=== PATIENT | female | born 1975 | race Caucasian/White ===

== ENCOUNTER 2024-08-09 09:01 | Outpatient (CLI) | payer OTHER, SELFPAY ==
--- OUTSIDE RECORDS SUMMARY | 2024-08-09 09:07 | XMS_ITS | Clinical Summary ---
Author Organization [facility] [address] [place] [address] Care Team Providers Care Guide Plant Name Role Phone Jarrett Sandoval MD Primary Care Provider [phone] Juan Thomas MD Unavailable [phone] Allergies Active Allergy Reactions Criticality Noted Date Comments Diphenhydramine Other (See comments) Low 03/03/2024 Nose bleeds Naproxen Vomiting Low 03/03/2024 Medications norgestimate-eth inyl estradioL (ORTHO-CYCLEN) 0.25-35 mg-mcg per tablet Take 1 tablet by mouth daily Active Active Problems Problem Noted Date Diagnosed Date Lipoma of torso 03/03/2024 Encounter for medical examination to establish c are 03/03/2024 Assessment & Plan (03/03/2024 3:55 PM ROUSTABOUT SUPERVISOR): A(n) initial well visit to establish care has been performed today. Cecilia Sharp is not up to date on screening tests. She is in need of Colon cancer screening, Cholesterol screening, Hepatitis B, and Hepatitis C screening. She is not up to date on needed preventative vaccinations; She is in need of Tdap/Td. We discussed healthy lifestyle habits, educational material has been given. Medications reviewed, changes documented as per the medical record and discussed with patient along with risks vs benefits. Specific topics reviewed: drugs, ETOH, and tobacco, importance of regular dental care, importance of regular exercise, importance of varied diet, limit TV, media violence, minimize junk food, and seat belts. Return in 1 year Medical History Medical History Date Comments Lipoma of torso 03/03/2024 Family History Medical History Relation Name Comments No Known Problems Brother Lung cancer Father Gus heavy smoker (> 2 ppd) Prostate cancer Maternal Grandfather Breast cancer Maternal Grandmother Heart disease Maternal Grandmother COPD Mother Lola Diabetes Mother Lola Obesity Mother Lola morbid Macular degeneration Paternal Grandfather Prostate cancer Paternal Grandfather No Known Problems Paternal Grandmother Relation Name Status Comments Brother Alive Father Gus Maternal Grandfather Maternal Grandmother Mother Lola Alive Paternal Grandfather Paternal Grandmother Social History Tobacco Use Types Packs/Day Years Used Date Smoking Tobacco: Never Smokeless Tobacco: Never AUDIT-C Answer Date Recorded Q1: How often do you have a drink containing alc ohol? 2-4 times a month 03/03/2024 Q2: How many drinks containi ng alcohol do you have on a typical day when you are drinking? 1 or 2 03/03/2024 Q3: How often do you have si x or more drinks on one occasion? 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3 03/03/2024 3:39 PM ROUSTABOUT SUPERVISOR Plan of Treatment Health Maintenance Due Date Last Done Comments Cervical Cancer Screening 1975 DTaP/Tdap/Td Vaccine (1 - Tdap) 1986 Hepatitis B Screening 1993 Covid-19 Vaccine (4 - 2023-2 5 season) 2023 03/03/2021, 07/03/2020, 06/05/2020 Influenza Vaccine (#1) 2024 Postp oned from 12/16/2023 (Patient declined, but will receive in the future) Breast Cancer Screening-Mammogram 12/08/2024 Postponed from 01/14 (Patient declined, but will receive in the future) Depression Screening 03/03/2025 03/03/2024 Regular Well Visit/Exam 18-64 03/03/2025 03/03/2024 Colon Cancer Screening-DNA Stool 03/22/2027 03/22/2024 Hepatitis C Screening Completed 03/03/2024 Pneumococcal vaccine <65 Aged Out No longer eligible based on patient's age to complete this topic Procedures Procedure Name Priority Date/Time Associated Diagnosis Comments STOOL DNA COLOGUARD Routine 03/22/2024 8:00 AM ROUSTABOUT SUPERVISOR Screen for colon cancer HEPATITIS C ANTIBODY Routine 03/03/2024 4:11 PM ROUSTABOUT SUPERVISOR Encounter for hepatitis C screening test for low risk patient from Last 3 Months or Most Recently Relevant to Health Maintenance Results * Stool DNA - Cologuard (03/22/2024 8:00 AM ROUSTABOUT SUPERVISOR) Stool DNA - Cologuard Negative Negative Do It In Person (CLIA #:[id number]) Comment: NEGATIVE TEST RESULT. A negative Cologuard result indicates a low likelihood that a colorectal cancer (CRC) or advanced adenoma (adenomatous polyps with more advanced pre-malignant features) is present. The chance that a person with a negative Cologuard test has a colorectal cancer is less than 1 in 1500 (negative predictive value >99.9%) or has an advanced adenoma is less than 5.3% (negative predictive value 94.7%). These data are based on a prospective cross-sectional study of 10,000 individuals at average risk for colorectal cancer who were screened with both Cologuard and colonoscopy. (Ghazal Corbett al, N Engl J Med 2014;370(14):6608-2873) The normal value (reference range) for this assay is negative. COLOGUARD RE-SCREENING RECOMMENDATION: Periodic colorectal cancer screening is an important part of preventive healthcare for asymptomatic individuals at average risk for colorectal cancer. Following a negative Cologuard result, the [place] Cancer Society and U.S. Multi-Society Task Force screening guidelines recommend a Cologuard re-screening interval of 3 years. References: [place] Cancer Society Guideline for Colorectal Cancer Screening: https://www.cancer.org/cancer/tfnvq-ecfiei-ssnzsr/bnduatddh-jpmmokqkw-oojoaui/ac s-rec ommendations.html.; Bernard DK, Дмитрий GUTIERRES, Aquiles TenorioK, Colorectal Cancer Screening: Recommendations for Physicians and Patients from the U.S. Multi-Society Task Force on Colorectal Cancer Screening , Am J Gastroenterology 2017; 112:6804-1992. TEST DESCRIPTION: Composite algorithmic analysis of stool DNA-biomarkers with hemoglobin immunoassay. Quantitative values of individual biomarkers are not reportable and are not associated with individual biomarker result reference ranges. Cologuard is intended for colorectal cancer screening of adults of either sex, 45 years or older, who are at average-risk for colorectal cancer (CRC). Cologuard has been approved for use by the U.S. FDA. The performance of Cologuard was established in a cross sectional study of average-risk adults aged 50-84. Cologuard performance in patients ages 45 to 49 years was estimated by sub-group analysis of near-age groups. Colonoscopies performed for a positive result may find as the most clinically significant lesion: colorectal cancer [4.0%], advanced adenoma (including sessile serrated polyps greater than or equal to 1cm diameter) [20%] or non- advanced adenoma [31%]; or no colorectal neoplasia [45%]. These estimates are derived from a prospective cross-sectional screening study of 10,000 individuals at average risk for colorectal cancer who were screened with both Cologuard and colonoscopy. (Ghazal Flores, N Engl J Med 2014;370(14):4703-3313.) Cologuard may produce a false negative or false positive result (no colorectal cancer or precancerous polyp present at colonoscopy follow up). A negative Cologuard test result does not guarantee the absence of CRC or advanced adenoma (pre-cancer). The current Cologuard screening interval is every 3 years. ([place] Cancer Society and U.S. Multi-Society Task Force). Cologuard performance data in a 10,000 patient pivotal study using colonoscopy as the reference method can be accessed at the following location: www.Quibb/results. Additional description of the Cologuard test process, warnings and precautions can be found at www.appssavvyrd.com. Stool 03/22/2024 8:00 AM ROUSTABOUT SUPERVISOR 03/23/2024 7:20 PM ROUSTABOUT SUPERVISOR Result [facility] Jarrett Sandoval MD LAB BODY FLUIDS AND STOOLS ORDERABLES Final Result Performing Organization Address [facility] Co de Phone Number [employer] (CLIA #:[id number]) [address] [place] [address] * Hepatitis C antibody Blood (03/03/2024 4:11 PM ROUSTABOUT SUPERVISOR) Hep C Ab Nonreactive Nonreactive Comment: Interpretive Data Nonreactive: Antibodies to HCV not detected. Does NOT exclude the possibility of recent exposure to HCV. Equivocal: Equivocal for HCV antibodies. Supplemental molecular testing will be automatically performed to determine infection status in accordance with current CDC screening recommendations. Reactive: Positive for HCV antibodies. This may represent current or past HCV infection. Supplemental molecular testing will be automatically performed to determine current infection status in accordance with current CDC screening recommendations. Interpretive data was last revised on 2019. Blood 03/03/2024 4:11 PM ROUSTABOUT SUPERVISOR 03/03/2024 8:36 PM ROUSTABOUT SUPERVISOR Jarrett Sandoval MD LAB MICROBIOLOGY - GENERAL ORDERABLES Final Result Performing Organization Address [facility] Co de Phone Number MELCHOR [phone] [place] [address] from Last 3 Months or Most Recently Relevant to Health Maintenance Insurance [facility] H[facility]/PP[place] Address: [place] [address] Care Teams Guide Plant Relationship Specialty Start Date End Date Jarrett Sandoval MD [address] [facility] [address] [place] [address] PCP - General Family Medicine 03/03/24 Juan Thomas MD [address] [place] [address] Referring Physician Obstetrics and Gynecology 03/03/24
--- OUTSIDE RECORDS SUMMARY | 2024-08-09 09:07 | XMS_ITS | Referral Summary ---
Author Organization [facility] [address] Address [address] [place] [address] Care Team Providers Care Woodwinds Teacher Name Role Phone Jarrett Sandoval MD Primary Care Provider [phone] Juan Thomas MD Unavailable [phone] Allergies Active Allergy Reactions Criticality Noted Date Comments Diphenhydramine Other (See comments) Low 03/03/2024 Nose bleeds Naproxen Vomiting Low 03/03/2024 Medications norgestimate-eth inyl estradioL (ORTHO-CYCLEN) 0.25-35 mg-mcg per tablet Take 1 tablet by mouth daily Active Active Problems Problem Noted Date Diagnosed Date Lipoma of torso 03/03/2024 Encounter for medical examination to establish c are 03/03/2024 Assessment & Plan (03/03/2024 3:55 PM BAILING MACHINE OPERATOR): A(n) initial well visit to establish care [...] and seat belts. 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 Not on file Not on file Not on file Last Filed Vital Signs Vital Sign Reading Time Taken Comments Blood Pressure 126/74 03/03/2024 3:39 PM BAILING MACHINE OPERATOR Pulse 78 03/03/2024 3:39 PM BAILING MACHINE OPERATOR Temperature 36.6 C (97.8 F) 03/03/2024 3:39 PM BAILING MACHINE OPERATOR Respiratory Rate 18 03/03/2024 3:39 PM BAILING MACHINE OPERATOR Oxygen Saturation 98% 03/03/2024 3:39 PM BAILING MACHINE OPERATOR Inhaled Oxygen Concentration - - Weight 79.8 kg (176 lb) 03/03/2024 3:39 PM BAILING MACHINE OPERATOR Height 171 cm (5' 7.32 ) 03/03/2024 3:39 PM BAILING MACHINE OPERATOR Body Mass Index 27.3 03/03/2024 3:39 PM BAILING MACHINE OPERATOR Plan of Treatment Not on file Procedures Procedure Name Priority Date/Time Associated Diagnosis Comments STOOL DNA COLOGUARD Routine 03/22/2024 8:00 AM BAILING MACHINE OPERATOR Screen for colon cancer HEPATITIS C ANTIBODY Routine 03/03/2024 4:11 PM BAILING MACHINE OPERATOR Encounter for hepatitis C screening test for low risk patient from Last 3 Months or Most Recently Relevant to Health Maintenance Results * Stool DNA - Cologuard (03/22/2024 8:00 AM BAILING MACHINE OPERATOR) Pathologist [facility] Stool DNA - Cologuard Negative Negative [facility] (CLIA #:[id number]) Comment: NEGATIVE TEST RESULT. A negative Cologuard [...] screened with both Cologuard and colonoscopy. (Ghazal Purdy et al, N Engl J Med 2014;370(14):1462-6542) The normal value (reference range) for this assay is negative. COLOGUARD RE-SCREENING RECOMMENDATION: Periodic colorectal cancer screening is an important part of preventive healthcare for asymptomatic individuals at average risk for colorectal cancer. Following a negative Cologuard result, the [place] Cancer Society and U.S. Multi-Society Task Force screening guidelines recommend a Cologuard re-screening interval of 3 years. References: [place] Cancer Society Guideline for Colorectal Cancer Screening: https://www.cancer.org/cancer/gkjdm-huiycc-emzvst/ayiehkxxc-wklhgfwew-lboydsc/ac s-rec ommendations.html.; Bernard DK, Дмитрий CR, Aquiles TenorioK, Colorectal Cancer Screening: Recommendations for Physicians and Patients from the U.S. Multi-Society Task Force on Colorectal Cancer Screening , Am J Gastroenterology 2017; 112:2749-7674. TEST DESCRIPTION: Composite algorithmic analysis of stool [...] (Ghazal Corbett al, N Engl J Med 2014;370(14):7849-5557.) Cologuard may produce a false negative or false positive result (no colorectal cancer or precancerous polyp present at colonoscopy follow up). A negative Cologuard test result does not guarantee the absence of CRC or advanced adenoma (pre-cancer). The current Cologuard screening interval is every 3 years. ([place] Cancer Society and U.S. Multi-Society Task Force). Cologuard performance data in a 10,000 patient pivotal study using colonoscopy as the reference method can be accessed at the following location: www.Zebtab/results. Additional description of the Cologuard test process, warnings and precautions can be found at www.Indigiord.com. Stool 03/22/2024 8:00 AM BAILING MACHINE OPERATOR 03/23/2024 7:20 PM BAILING MACHINE OPERATOR Jarrett Sandoval MD LAB BODY FLUIDS AND STOOLS ORDERABLES Final Result [facility] (CLIA #:[id number]) [address] [address] * Hepatitis C antibody Blood (03/03/2024 4:11 PM BAILING MACHINE OPERATOR) Hep C Ab Nonreactive Nonreactive Comment: Interpretive [...] revised on 2019. Blood 03/03/2024 4:11 PM BAILING MACHINE OPERATOR 03/03/2024 8:36 PM BAILING MACHINE OPERATOR Jarrett Sandoval MD LAB MICROBIOLOGY - GENERAL ORDERABLES Final Result Performing Organization Address City/State/ZIP [facility] Phone Number M[facility] [phone] Department [place] [address] from Last 3 Months or Most Recently Relevant to Health Maintenance Insurance [facility] CHOICE PLUS [facility] H[facility]/PPO Address: [facility] [id number] [place] [id number] Care Teams Woodwinds Teacher Relationship Specialty Start Date End Date Jarrett Sandoval MD [address] [place] [address] PCP - General Family Medicine 03/03/24 Juan Thomas MD [address] [place] [address] Referring Physician Obstetrics and Gynecology 03/03/24
--- OUTSIDE RECORDS SUMMARY | 2024-08-09 09:07 | XMS_ITS | Clinical Summary ---
Author Organization [facility] Address [address] [place] [address] Care Team Providers Care Zigzag Elastic Attacher Name Role Phone Unavailable Primary Care Provider Unavailabl e Social History Tobacco Use Types Packs/Day Years Used Date Smoking Tobacco: Never Assessed Comments Unknown Sex and Gender Information Value Date Recorded Sex Assigned at Not on file Legal Sex Female 3:46 PM CDT Gender Identity Not on file Sexual Orientation Not on file Plan of Treatment Health Maintenance Due Date Last Done Comments Hepatitis C Virus (HCV) Screening 1975 TdaP Immunization 1975 Hepatitis B Immunization (1 of 3 - 19+ 3-dose series) 1994 Pap Smear 01/15/1996 Cervical Cancer Screening (CCS) 2005 HPV/Cotest 2005 Discussion re Starting/Frequ ency of Mammograms 2015 Colonoscopy 01/15/2020 Colorectal Cancer Screening 01/15/2020 Influenza Immunization (#1) 2023 SARS-COV-2 Immunization ( season) 2023 Respiratory Syncytial Virus (RSV) Immunization (Adult) (1 - 1-dose 75+ series) 2050 Meningococcal Immunization (ACWY) Aged Out No longer eligible based on patient's age to complete this topic Pneumococcal Immunization Combined Aged Out No longer eligible based on patient's age to complete this topic Rotavirus Immunization Aged Out No lo nger eligible based on patient's age to complete this topic
--- OUTSIDE RECORDS SUMMARY | 2024-08-09 09:07 | XMS_ITS | Clinical Summary ---
Author Organization [facility] Address [address] [place] [address] Care Team Providers Care Service Coordinator Name Role Phone AshleeDoris trotter Tejinder ASSOCIATE TRAINER Primary Care Provider Allergies Active Allergy Reactions Criticality Noted Date Comments Naproxen Nausea Only,Diarrhea Medium 12/05/2018 Medications TRI-SPRINTEC 0.18/0.215/0.25 MG-35 MCG tablet Take 1 tablet by mouth daily. 2 11/13/2018 Active Active Problems No known active problems Family History Medical History Relation Comments Cancer Father COPD Mother Diabetes Mother Relation Status Comments Father Mother Alive Social History Tobacco Use Types Packs/Day Years Used Date Smoking Tobacco: Never Smokeless Tobacco: Never Alcohol Use Standard Drinks/Week Comments Yes 0 (1 standard drink = 0.6 oz pur e alcohol) Comments No Sex and Gender Information Value Date Recorded Sex Assigned at Not on file Legal Sex Female 9:34 AM CDT Gender Identity Not on file Sexual Orientation Not on file Last Filed Vital Signs Vital Sign Reading Time Taken Comments Blood Pressure 110/70 12/05/2018 8:45 AM CDT Pulse 86 12/05/2018 8:45 AM CDT Temperature 36.7 C (98.1 F) 12/05/2018 8:45 AM CDT Respiratory Rate 18 12/05/2018 8:45 AM CDT Oxygen Saturation 98% 12/05/2018 8:45 AM CDT Inhaled Oxygen Concentration - - Weight 79.4 kg (175 lb 1 oz) 12/05/2018 8:45 AM CDT Height - - Body Mass Index - - Plan of Treatment Health Maintenance Due Date Last Done Comments Cervical Cancer Screening Pa p Smear (Age 30 to 64) Every 3 Years 1975 Colorectal Cancer Screening Colonoscopy (10 Years) 1975 Hepatitis C 1993 DTaP, Tdap and Td Vaccines ( 1 - Tdap) 1994 Hepatitis B Vaccines (1 of 3 - 19+ 3-dose series) 1994 Cervical Cancer Screening Pa p with HPV Testing (Age 30 to 64) Every 5 Years 2005 Cervical Cancer Screening wi th HPV 2005 Mammogram Screening 2015 Annual Physical 12/06/2019 12/05/2018 COVID-19 Vaccine (4 - 2023-2 5 season) 2023 03/03/2021, 07/03/2020, 06/05/2020 Meningococcal B Vaccine Aged Out No l onger eligible based on patient's age to complete this topic Meningococcal Vaccine Aged Out No kareem corrine eligible based on patient's age to complete this topic Pneumococcal Vaccine: Pediatrics (0 to 5 Years) and At-Risk Patients (6 to 49 Years) Aged Out No longer eligible b ased on patient's age to complete this topic RSV Immunizations Under 20 Months Aged Out No longer eligible b ased on patient's age to complete this topic Insurance [id number] Care Teams Service Coordinator Relationship Specialty Start Date End Date Doris Rosado NP [address] [facility] [address] [place] [address] PCP - General NURSE PRACTITIONER 09/13/23
[2024-08-09 09:33] LABS: Basophils Absolute Auto 0.1 K/mm3 (0.0-0.1); Basophils Percent Auto 0.7 % (0.2-1.2); Eosinophils Absolute Auto 0.6 K/mm3 (0-0.3); Eosinophils Percent Auto 7.9 % (0-4.4); Hematocrit 38.6 % (37.0-47.0); Hemoglobin 12.7 g/dL (12.0-15.0); Immature Granulocyte Absolute 0.02 K/mm3 (0.00-0.031); Immature Granulocyte Percent A 0.3 % (0-0.5); Lymphocytes Absolute Auto 1.97 K/mm3 (0.9-3.2); Lymphocytes Percent Auto 28.3 % (18.3-44.2); Mean Corpuscular HGB Conc 32.9 g/dl (32-36); Mean Corpuscular Hemoglobin 29.6 pg (26-34); Mean Platelet Volume 10.5 fl (7.4-10.4); Monocytes Absolute Auto 0.6 K/mm3 (0.1-0.6); Monocytes Percent Auto 8.9 % (2.6-8.5); Neutrophils Absolute Auto 3.8 K/mm3 (1.3-6.7); Neutrophils Percent Auto 53.9 % (45.5-73.1); Platelet Count Result 324 k/mm3 (150-375); Red Blood Count 4.29 M/mm3 (4.2-5.4); Red Cell Distribution Width 13.4 % (11.5-14.5)
== END 2024-08-09 09:02 | disposition home or self-care (01) ==
LOC: ANHLAB 09:04
PROVIDERS: PCP Family Medicine; Referring Provider Obstetrics & Gynecology; Visit Provider Anesthesiology
DX: D25.9 Leiomyoma of uterus, unspecified (principal)
CPT/HCPCS: 36415; 85025; 86850; 86900; 86901

== ENCOUNTER 2024-08-14 01:02 | Day surgery (SDC) | payer OTHER, SELFPAY ==
[2024-08-05 09:08] VITALS: BMI 27.4
--- NOTE | 2024-08-05 09:18 | PC.NURSE ---
Report to the Outpatient Waiting Room, entrance under the green pavilion located off [facility], at time ___0600___ on date ___08/14/2024___. Planned Procedure Time: ___729___.? Time changes happen often and if your time is changed the preop area will call you the afternoon before. - You and your visitor will be asked to self-screen and do not enter if you have any COVID symptoms. Please call surgeon if you need to reschedule. - A mask is optional within the hospital at this time. Patients may have clear liquids (water, carbonated beverages, clear teas, apple juice) until 3 hours prior to surgery with a maximum of 20 ounces. - No food from midnight until time of surgery and no smoking, or chewing tobacco (or any form of nicotine). No chewing gum, candy or mints. Take only the following medications with a SIP of water on the morning of surgery: NONE____ DO NOT STOP ANY OF YOUR OTHER PRESCRIPTION MEDICATIONS PRIOR TO SURGERY EXCEPT THE FOLLOWING Hold all vitamins and supplements for 3 days per anesthesiologist. Please no make-up, nail haitian, hairspray, perfume, deodorant, or body powder the day of surgery.? No jewelry (including any body piercings) or valuables the day of surgery, leave them at home.? Please take a shower or bath the night before, or the morning of, surgery with an antibacterial soap.? Wear comfortable, loose fitting clothing.? - Jewelry must be removed prior to entering the operating room.? Rings and piercings that are not removed may be cut off. - The hospital will not accept responsibility for valuables.? - Please leave all valuables, including medications, at home the day of surgery. If you are going home after surgery, a licensed entry level truck driver must drive you home.? - NO public transportation without another adult if you receive anesthesia. - We recommend that an adult stay with you for 24 hours following discharge. - We also recommend that you do not drive, make important decision, drink alcoholic beverages, or take any drugs that were not prescribed by your health care provider for at least 24 hours after your discharge time. Follow any additional instructions given to you from your surgeon. Telephone instructions given to ____Cecilia___and asked if any additional questions and then verbalized understanding. Patient advised to call surgeon office or pre surgery nurse liaison [phone] if any additional questions.
--- NOTE | 2024-08-12 17:37 | P.HP_ITS ---
H&P: HPI History of Present Illness Date/Time: 08/12/24 17:37 49-year-old 3 para 3003 female presents for surgical management of enlarged fibroid uterus with vaginal bleeding. Has been on continuous control pills in the recent past though in spite of this having a lot of cramping discomfort as well as significant amount of bleeding. Ultrasound performed did reveal ultrasound 9x8x8 cm with at least 3 fibroids greater than 4cm. Presents therefore for laparoscopic hysterectomy with ovarian p reservation. Chief Complaint: menometrorrhagia and pelvic pain Review of Systems Review of Systems: All systems reviewed & are unremarkable except as noted in HPI and below PMFSH Past Medical History Medical History Screening mammogram, encounter for Abnormal Pap smear of cervix 2012 ascus; 2013 lgsil; 11/27 ascus - hpv; 06/15/14 ascus neg hpv Surgical History Surgical History History of colposcopy with cervical biopsy 11/02/10 & 05/26/13 Family History Family History Grandparent Osteoporosis maternal grandmother Malignant neoplasm of prostate paternal grandfather maternal grandfather Mother Chronic obstructive lung disease Diabetes mellitus Father Malignant neoplasm of lung Social History Social History Smoking status: Never smoker Second hand tobacco smoke exposure: No Alcohol intake: current Drinks per week: 5 Substance use: never Substance use type: does not use Do You Feel Safe in your Home?: Yes Lack of Transportation: No Lack of Food: Never True Current Housing: I Have Housing Concerned About Future Housing: No Difficulty Paying Gas/Electric Bills: No Difficulty Paying for Meds: No Currently Unemployed: No Education: Master's Degree or Higher Difficulty w/ Childcare or Family Care: No Living arrangements: with family Additional living arrangements comments: Occupation/Education: occupation Additional occupation/education comments: teacher Gender identity (if verbalized by the patient): Female Sexual Orientation (if Verbalized by the Patient): Straight or Heterosexual Meds Home Medications and Allergies Home Medications ?Medication ?Instructions ?Recorded ?Confirmed ?Type norgestimate-ethinyl estradiol 1 tablet PO DAILY #112 tabs 04/03/24 08/05/24 Rx 0.18mg/0.215mg/0.25mg-0.035mg(28)tablet (Tri-Sprintec (28)) Allergies Allergy/AdvReac Type Severity Reaction Status Date / Time naproxen Allergy Severe Vomiting Verified 08/05/24 09:06 Exam Const: General: cooperative, healthy appearing and comfortable Resp: Effort & Inspection: normal respiratory effort Auscultation: clear to auscultation bilaterally Cardio: Rate: regular rate Rhythm: regular rhythm GI: Inspection: normal to inspection Auscultation: normal bowel sounds : External Female Exam: normal external appearance Speculum Exam - Vagina: normal appearance of the vagina Speculum Exam - Cervix: normal appearance of the cervix Bimanual exam- vagina & uterus: enlarged ( 12-14 week size with irregular contour) Bimanual Exam- Adnexa, other: normal adnexae Assessment and Plan Assessment and plan (1) Fibroid uterus: Code(s): D25.9 - Leiomyoma of uterus, unspecified Status: Acute (2) Enlarged uterus: Code(s): N85.2 - Hypertrophy of uterus Status: Acute (3) Irregular bleeding: Code(s): N92.6 - Irregular menstruation, unspecified Status: Acute Plan 1. Robotic assisted laparoscopic total hysterectomy with bilateral salpingectomy. Ovarian preservation.
[2024-08-14] VITALS (11 sets, daily range): BP systolic 98–124; BP diastolic 56–76; PULSE 72–89; RESP 12–18; TEMP 36.1–37.4; O2SAT 96–100; BMI 28.8
--- OUTSIDE RECORDS SUMMARY | 2024-08-14 01:05 | XMS_ITS | Clinical Summary ---
Author Organization [facility] Address [address] [place] [id number] Care Team Providers Care Fire Prevention Research Engineer Name Role Phone AshleeDoris trotter Tejinder SUPERVISOR MACHINE SETTER Primary Care Provider Allergies Active Allergy Reactions [...] patient's age to complete this topic Insurance [id number] Care Teams Fire Prevention Research Engineer Relationship Specialty Start Date End Date Doris Rosado NP [address] [facility] [address] [place] [address] PCP - General NURSE PRACTITIONER 09/13/23
--- OUTSIDE RECORDS SUMMARY | 2024-08-14 01:05 | XMS_ITS | Referral Summary ---
Author Organization [address] Address [address] [place] [address] Care Team Providers Care Denture Packer Name Role Phone Jarrett Sandoval MD Primary Care Provider [phone] Juan Thomas MD Unavailable [phone] Encounters Date Type Department Care Team Description 08/13/2024 Orders Only [facility] Medical Group Primary Care at [address] [address] Provider, MD Gallo from Last 3 Months Allergies Active Allergy Reactions Criticality Noted Date Comments Diphenhydramine Other (See comments) Low 03/03/2024 Nose bleeds Naproxen Vomiting Low 03/03/2024 Medications norgestimate-eth inyl estradioL (ORTHO-CYCLEN) 0.25-35 mg-mcg per tablet Take 1 tablet by mouth daily Active Active Problems Problem Noted Date Diagnosed Date Lipoma of torso 03/03/2024 Encounter for medical examination to establish c are 03/03/2024 Assessment & Plan (03/03/2024 3:55 PM SANDER PORTABLE MACHINE): A(n) initial well visit to establish care [...] 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 file Not on file Not on file Last Filed Vital Signs Vital Sign Reading Time Taken Comments Blood Pressure 126/74 03/03/2024 3:39 PM SANDER PORTABLE MACHINE Pulse 78 03/03/2024 3:39 PM SANDER PORTABLE MACHINE Temperature 36.6 C (97.8 F) 03/03/2024 3:39 PM SANDER PORTABLE MACHINE Respiratory Rate 18 03/03/2024 3:39 PM SANDER PORTABLE MACHINE Oxygen Saturation 98% 03/03/2024 3:39 PM SANDER PORTABLE MACHINE Inhaled Oxygen Concentration - - Weight 79.8 kg (176 lb) 03/03/2024 3:39 PM SANDER PORTABLE MACHINE Height 171 cm (5' 7.32 ) 03/03/2024 3:39 PM SANDER PORTABLE MACHINE Body Mass Index 27.3 03/03/2024 3:39 PM SANDER PORTABLE MACHINE Plan of Treatment Not on file Procedures Procedure Name Priority Date/Time Associated Diagnosis Comments CBC WITH AUTO DIFFERENTIAL Routine 08/09/2024 9:07 AM CDT STOOL DNA COLOGUARD Routine 03/22/2024 8:00 AM SANDER PORTABLE MACHINE Screen for colon cancer HEPATITIS C ANTIBODY Routine 03/03/2024 4:11 PM SANDER PORTABLE MACHINE Encounter for hepatitis C screening test for low risk patient from Last 3 Months or Most Recently Relevant to Health Maintenance Results * CBC with auto differential (08/09/2024 9:07 AM CDT) Blood us Historical Provider LAB BLOOD ORDERABLES Kathy hughes Result EXTERNAL LAB * Stool DNA - Cologuard (03/22/2024 8:00 AM SANDER PORTABLE MACHINE) Stool DNA - Cologuard Negative Negative [employer] (CLIA #:[id number]) Comment: NEGATIVE TEST RESULT. A negative Cologuard [...] (Ghazal Corbett al, N Engl J Med 2014;370(14):2580-4596) The normal value (reference range) for this assay is negative. COLOGUARD RE-SCREENING RECOMMENDATION: Periodic colorectal cancer screening is an important part of preventive healthcare for asymptomatic individuals at average risk for colorectal cancer. Following a negative Cologuard result, the [place] Cancer Society and U.S. Multi-Society Task Force screening guidelines recommend a Cologuard re-screening interval of 3 years. References: [place] Cancer Society Guideline for Colorectal Cancer Screening: https://www.cancer.org/cancer/eemhw-zpqyke-rknwda/phtulpypv-hzaqsenru-rbcener/ac s-rec ommendations.html.; Bernard JC, Дмитрий GUTIERRES, Aquiles HARRIS, Colorectal Cancer Screening: Recommendations for Physicians and Patients from the U.S. Multi-Society Task Force on Colorectal Cancer Screening , Am J Gastroenterology 2017; 112:3340-6394. TEST DESCRIPTION: Composite algorithmic analysis of stool [...] screened with both Cologuard and colonoscopy. (Ghazal Gilbert. et al, N Engl J Med 2014;370(14):2053-0020.) Cologuard may produce a false negative or false positive result (no colorectal cancer or precancerous polyp present at colonoscopy follow up). A negative Cologuard test result does not guarantee the absence of CRC or advanced adenoma (pre-cancer). The current Cologuard screening interval is every 3 years. ([place] Cancer Society and U.S. Multi-Society Task Force). Cologuard performance data in a 10,000 patient pivotal study using colonoscopy as the reference method can be accessed at the following location: www.[employer]an [employer].com/results. Additional description of the Cologuard test process, warnings and precautions can be found at www.M[employer]br[employer]Sherpard.com. Stool 03/22/2024 8:00 AM SANDER PORTABLE MACHINE 03/23/2024 7:20 PM SANDER PORTABLE MACHINE Jarrett Sandoval MD LAB BODY FLUIDS AND STOOLS ORDERABLES Final Result Performing Organization Address City/[facility] Co de Phone Number [facility] (CLIA #:[id number]) [address] [address] * Hepatitis C antibody Blood (03/03/2024 4:11 PM SANDER PORTABLE MACHINE) Hep C Ab Nonreactive Nonreactive Comment: Interpretive [...] revised on 2019. Blood 03/03/2024 4:11 PM SANDER PORTABLE MACHINE 03/03/2024 8:36 PM SANDER PORTABLE MACHINE Jarrett Sandoval MD LAB MICROBIOLOGY - GENERAL ORDERABLES Final Result Performing Organization Address [facility] Co de Phone Number [facility] [address] [address] Department of Laboratories [place] [phone] from Last 3 Months or Most Recently Relevant to Health Maintenance Insurance [facility] [employer] Care Teams Denture Packer Relationship Specialty Start Date End Date Jarrett Sandoval MD [address] [place] [address] PCP - General Family Medicine 03/03/24 Juan Thomas MD [address] [place] [address] Referring Physician Obstetrics and Gynecology 03/03/24
--- OUTSIDE RECORDS SUMMARY | 2024-08-14 01:05 | XMS_ITS | Encounter Summary ---
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 Not on file Not on file documented as of this encounter Plan of Treatment Not on file documented as of this encounter Procedures Procedure Name Priority Date/Time Associated Diagnosis Comments CBC WITH AUTO DIFFERENTIAL Routine 08/09/2024 9:07 AM CDT documented in this encounter Results * CBC with auto differential (08/09/2024 9:07 AM CDT) Blood us Historical Provider LAB BLOOD ORDERABLES Kathy hughes Result Performing Organization Address City/State/[facility] Co de Phone Number EXTERNAL LAB documented in this encounter Visit Diagnoses Not on filedocumented in this encounter Care Teams Dental Hygienist Mobile Coordinator Relationship Specialty Start Date End Date Jarrett Sandoval MD [facility] [place] [address] [place] [address] PCP - General Family Medicine 03/03/24 Juan Thomas MD [address] [place] [address] Referring Physician Obstetrics and Gynecology 03/03/24 documented as of this encounter
--- OUTSIDE RECORDS SUMMARY | 2024-08-14 01:05 | XMS_ITS | Clinical Summary ---
Author Organization [place] [address] Address [address] [place] [address] Care Team Providers Care Aluminum Boats Assembler Name Role Phone Jarrett Sandoval MD Primary Care Provider [phone] Juan Thomas MD Unavailable [phone] Allergies Active Allergy Reactions Criticality Noted Date Comments Diphenhydramine Other (See comments) Low 03/03/2024 Nose bleeds Naproxen Vomiting Low 03/03/2024 Medications norgestimate-eth inyl estradioL (ORTHO-CYCLEN) 0.25-35 mg-mcg per tablet Take 1 tablet by mouth daily Active Active Problems Problem Noted Date Diagnosed Date Lipoma of torso 03/03/2024 Encounter for medical examination to establish c are 03/03/2024 Assessment & Plan (03/03/2024 3:55 PM POTATO CHIP PACKAGING MACHINE OPERATOR): A(n) initial well visit to establish care has been performed today. Cecilia Shrap is not up to date on screening [...] and seat belts. 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 on file Not on file Obstetrics History Last Filed Vital Signs Vital Sign Reading Time Taken Comments Blood Pressure 126/74 03/03/2024 3:39 PM POTATO CHIP PACKAGING MACHINE OPERATOR Pulse 78 03/03/2024 3:39 PM POTATO CHIP PACKAGING MACHINE OPERATOR Temperature 36.6 C (97.8 F) 03/03/2024 3:39 PM POTATO CHIP PACKAGING MACHINE OPERATOR Respiratory Rate 18 03/03/2024 3:39 PM POTATO CHIP PACKAGING MACHINE OPERATOR Oxygen Saturation 98% 03/03/2024 3:39 PM POTATO CHIP PACKAGING MACHINE OPERATOR Inhaled Oxygen Concentration - - Weight 79.8 kg (176 lb) 03/03/2024 3:39 PM POTATO CHIP PACKAGING MACHINE OPERATOR Height 171 cm (5' 7.32 ) 03/03/2024 3:39 PM POTATO CHIP PACKAGING MACHINE OPERATOR Body Mass Index 27.3 03/03/2024 3:39 PM POTATO CHIP PACKAGING MACHINE OPERATOR Plan of Treatment Health Maintenance Due Date [...] STOOL DNA COLOGUARD Routine 03/22/2024 8:00 AM POTATO CHIP PACKAGING MACHINE OPERATOR Screen for colon cancer HEPATITIS C ANTIBODY Routine 03/03/2024 4:11 PM POTATO CHIP PACKAGING MACHINE OPERATOR Encounter for hepatitis C screening test for low risk patient from Last 3 Months or Most Recently Relevant to Health Maintenance Results * CBC with auto differential (08/09/2024 9:07 AM CDT) Blood us Historical Provider LAB BLOOD ORDERABLES Kathy hughes Result EXTERNAL LAB * Stool DNA - Cologuard (03/22/2024 8:00 AM POTATO CHIP PACKAGING MACHINE OPERATOR) Stool DNA - Cologuard Negative Negative [email or web address] (CLIA #:[id number]) Comment: NEGATIVE TEST RESULT. A negative Cologuard [...] screened with both Cologuard and colonoscopy. (Ghazal Corebtt al, N Engl J Med 2014;370(14):9746-0344) The normal value (reference range) for this assay is negative. COLOGUARD RE-SCREENING RECOMMENDATION: Periodic colorectal cancer screening is an important part of preventive healthcare for asymptomatic individuals at average risk for colorectal cancer. Following a negative Cologuard result, the [place] Cancer Society and U.S. Multi-Society Task Force screening guidelines recommend a Cologuard re-screening interval of 3 years. References: [place] Cancer Society Guideline for Colorectal Cancer Screening: https://www.cancer.org/cancer/cczue-djkvsh-nnovkh/cqafkzkur-zlhkenjyb-wrieldf/ac s-rec ommendations.html.; Bernard DK, Дмитрий CR, Aquiles TenorioK, Colorectal Cancer Screening: Recommendations for Physicians and Patients from the U.S. Multi-Society Task Force on Colorectal Cancer Screening , Am J Gastroenterology 2017; 112:5798-5977. TEST DESCRIPTION: Composite algorithmic analysis of stool [...] (Ghazal Corbett al, N Engl J Med 2014;370(14):4287-3731.) Cologuard may produce a false negative or false positive result (no colorectal cancer or precancerous polyp present at colonoscopy follow up). A negative Cologuard test result does not guarantee the absence of CRC or advanced adenoma (pre-cancer). The current Cologuard screening interval is every 3 years. ([place] Cancer Society and U.S. Multi-Society Task Force). Cologuard performance data in a 10,000 patient pivotal study using colonoscopy as the reference method can be accessed at the following location: www.[employer]ax/results. Additional description of the Cologuard test process, warnings and precautions can be found at www.[employer]. Stool 03/22/2024 8:00 AM POTATO CHIP PACKAGING MACHINE OPERATOR 03/23/2024 7:20 PM POTATO CHIP PACKAGING MACHINE OPERATOR Jarrett Sandoval MD LAB BODY FLUIDS AND STOOLS ORDERABLES Final Result [employer] (CLIA #:[id number]) [address] [address] * Hepatitis C antibody Blood (03/03/2024 4:11 PM POTATO CHIP PACKAGING MACHINE OPERATOR) Hep C Ab Nonreactive Nonreactive [...] revised on 2019. Blood 03/03/2024 4:11 PM POTATO CHIP PACKAGING MACHINE OPERATOR 03/03/2024 8:36 PM POTATO CHIP PACKAGING MACHINE OPERATOR Jarrett Sandoval MD LAB MICROBIOLOGY - GENERAL ORDERABLES Final Result Performing Organization Address City/State/ZIP [facility] Phone Number [place] [phone] [address] Department [place] [address] from Last 3 Months or Most Recently Relevant to Health Maintenance Insurance [facility] Care Teams Aluminum Boats Assembler Relationship Specialty Start Date End Date Jarrett Sandoval MD [address] [place] [address] PCP - General Family Medicine 03/03/24 Juan Thomas MD [address] [place] [address] Referring Physician Obstetrics and Gynecology 03/03/24
--- OUTSIDE RECORDS SUMMARY | 2024-08-14 01:05 | XMS_ITS | Clinical Summary ---
Author Organization [facility] Address [address] [place] [address] Care Team Providers Care Gas Distribution Supervisor Name Role Phone Unavailable Primary Care Provider [...]
--- NOTE | 2024-08-14 06:21 | WPDHPUPDATE1 ---
History and Physical Update Update Date/Time: 08/14/24 06:21 History and Physical has been reviewed, including an updated exam of the patient. There are NO changes in the patient's condition. Risks, benefits, and alternatives have been discussed and questions answered. Patient agrees to proceed with procedure.
[2024-08-14] MEDS: LACTATED RINGERS 1,000 ML 30 ML IV CONT ×2 (06:35→09:32)
--- NOTE | 2024-08-14 06:42 | WPDANESEPPF ---
Anes - Initial Pre Proc Eval Procedure: Operation Date: 08/14/24 07:30 Proposed Procedures p Robotic Assisted Total Laparoscopic Hysterectomy with Bilateral Salpingectomy - Juan Thomas MD Date/Time: 08/14/24 06:42 Surgeon: Juan Thomas MD Pre Op Diagnosis: Uterine Fibroid Patient Data Age: 49 Gender: F Height: 1.7 m Weight: 79.5 kg Allergies Allergy/AdvReac Type Severity Reaction Status Date / Time naproxen Allergy Severe Vomiting Verified 08/05/24 09:06 Home Medications ?Medication ?Instructions ?Recorded ?Confirmed ?Type norgestimate-ethinyl estradiol 1 tablet PO DAILY #112 tabs 04/03/24 08/05/24 Rx 0.18mg/0.215mg/0.25mg-0.035mg(28)tablet (Tri-Sprintec (28)) Patient hx anesthesia problems: none Family hx anesthesia problems: none Results Review: All pre-operative results and documents have been reviewed as part of the pre-operative evaluation. [facility] Past Medical History Medical History Screening mammogram, encounter for Abnormal Pap smear of cervix 2012 ascus; 2013 lgsil; 11/27 ascus - hpv; 06/15/14 ascus neg hpv Surgical History Surgical History History of colposcopy with cervical biopsy 11/02/10 & 05/26/13 Family History Family History Grandparent Osteoporosis maternal grandmother Malignant neoplasm of prostate paternal grandfather maternal grandfather Mother Chronic obstructive lung disease Diabetes mellitus Father Malignant neoplasm of lung Social History Social History Smoking status: Never smoker Second hand tobacco smoke exposure: No Alcohol intake: current Drinks per week: 5 Substance use: never Substance use type: does not use Do You Feel Safe in your Home?: Yes Lack of Transportation: No Lack of Food: Never True Current Housing: I Have Housing Concerned About Future Housing: No Difficulty Paying Gas/Electric Bills: No Difficulty Paying for Meds: No Currently Unemployed: No Education: Master's Degree or Higher Difficulty w/ Childcare or Family Care: No Living arrangements: with family Additional living arrangements comments: Occupation/Education: occupation Additional occupation/education comments: teacher Gender identity (if verbalized by the patient): Female Sexual Orientation (if Verbalized by the Patient): Straight or Heterosexual Anes - Eval Final PreProcedure Day of Procedure 08/14/24 06:42 Patient weight: overweight Heart: regular rate and rhythm Lungs: clear to auscultation Airway: Mallampati scale class II Neurological: alert and oriented Last oral intake: >/= 8 hours ASA classification: II Emergent: no Anesthetic plan: proceed Anesthesia type and monitoring: general ETT and standard monitoring Results Review: All pre-operative results and documents have been reviewed as part of the pre-operative evaluation. Informed Consent: The patient's anesthetic plan and its attendant risks and benefits were discussed with the patient/family/POA. Questions were solicited and answers provided to the satisfaction of the patient/family/POA.
[2024-08-14] MEDS: ACETAMINOPHEN 500 MG TABLET 1000 MG PO ×3 (06:53→17:26)
[2024-08-14] MEDS: KETOROLAC 15 MG/ML VIAL (*BKC) IV PUSH (06:53)
[2024-08-14] MEDS: ceFAZolin 2 GM/D5W 50 ML 2 GM/50 ML BAG IVPB (07:28)
--- NOTE | 2024-08-14 09:47 | W.PM.PROC2 ---
Procedure Note - Detailed Date of Procedure 08/14/24 Pre-op Diagnosis 1. Menometrorrhagia 2. Dysmenorrhea 3. Enlarged fibroid uterus Post-op Diagnosis Same Procedure Performed 1. Robotic assisted total laparoscopic hysterectomy with bilateral salpingectomy Surgeon Juan Thomas MD Anesthesia General Findings Enlarged globular uterus with multiple fibroids. Weight of specimen 500g. Ovaries without abnormality. Description of Procedure Patient prepped and draped usual manner for this procedure. Cervical instruments placed for uterine mobility throughout the case. Abdominal trocar sites were marked and placed under direct visualization. These were then attached to the de Patience system and the surgeon moved to the console. Enlarged fibroid uterus was noted with tubes and ovaries without abnormality. Mesial salpinx cauterized and cut and tubes removed without difficulty. Round ligaments were then cauterized and cut bilaterally bladder flap was developed without difficulty, posterior leaf the broad thing was also incised to skeletonize the uterine vessels. Once this was done the vessels were cauterized and cut without difficulty. Posterior colpotomy incision was made and this was carried circumferentially to separate the cervix from the vagina. Specimen was too large to deliver vaginally and multiple fibroids were removed laparoscopically to decrease the mass of the uterus and still unable to deliver. Therefore surgeon moved to the vaginal area and the cervix was grasped with tenaculum site at 3 and 9:00 a.m. and the uterus was bivalved and was able to be delivered posteriorly once the mass of the uterus was elongated. Once this was removed surgeon moved back to the console and cuff was closed using V lock suture from the right angle to the midline and left angle good approximation noted. Irrigation was undertaken and there was no bleeding. Mill[place] arm was placed empirically throughout on the raw edges, gas was allowed to escape trocars removed. Incisions approximated 0 Monocryl and the patient was then sent to the recovery room in stable condition. Drains No Packing No Pathology Yes (Uterus/fibroids and tubes) Complications No immediate complications Condition Stable Disposition PACU [facility] Billing Surgery - Charge Forward: Surgery Billing
[2024-08-14] MEDS: fentaNYL CITRATE INJ (*CRX) 100 MCG/2 ML VIAL 25 MCG IV PUSH ×6 (09:55→10:44)
--- NOTE | 2024-08-14 11:11 | ADMGEN ---
1100-This patient, Cecilia Sharp, was admitted to OB 2nd Floor Room 277-00. Patient/family oriented to hospital policies and general routines including ID bracelet, bed and alarms, visiting hours, pain management, procedures, bathroom and other care routines, personal items, smoking policy, room service/diet, and visiting hours. Information on how to activate the Rapid Response Team has been discussed. Patient/Family are encouraged to report perceived risks to care and to ask questions if they do not understand what they are told or what they should do.
[2024-08-14] MEDS: DEXTROSE 5%/0.45% SOD CHL 1,000 ML 125 ML IV CONT (11:23)
[2024-08-14] MEDS: KETOROLAC 30 MG/ML VIAL (*BKC) IV PUSH ×2 (11:24→17:26)
[2024-08-14] MEDS: SIMETHICONE 80 MG TAB.CHEW PO ×2 (11:25→17:32)
[2024-08-14] MEDS: DOCUSATE SODIUM 100 MG CAPSULE PO (17:32)
[2024-08-15] MEDS: KETOROLAC 30 MG/ML VIAL (*BKC) IV PUSH (00:32)
[2024-08-15] MEDS: ACETAMINOPHEN 500 MG TABLET 1000 MG PO ×2 (00:32→07:28)
[2024-08-15 03:10] VITALS: BP 129/78; PULSE 128; RESP 14; TEMP 36.8; O2SAT 99
[2024-08-15 05:16] LABS: Basophils Percent Auto 0.3 % (0.2-1.2); Eosinophils Absolute Auto 0.1 K/mm3 (0-0.3); Eosinophils Percent Auto 0.6 % (0-4.4); Hematocrit 38.3 % (37.0-47.0); Hemoglobin 12.5 g/dL (12.0-15.0); Immature Granulocyte Absolute 0.05 K/mm3 (0.00-0.031); Immature Granulocyte Percent A 0.4 % (0-0.5); Lymphocytes Absolute Auto 2.41 K/mm3 (0.9-3.2); Lymphocytes Percent Auto 19.5 % (18.3-44.2); Mean Corpuscular HGB Conc 32.6 g/dl (32-36); Mean Corpuscular Hemoglobin 29.6 pg (26-34); Mean Corpuscular Volume 90.5 fl (80-100); Mean Platelet Volume 11.4 fl (7.4-10.4); Monocytes Absolute Auto 1.2 K/mm3 (0.1-0.6); Monocytes Percent Auto 9.5 % (2.6-8.5); Neutrophils Absolute Auto 8.6 K/mm3 (1.3-6.7); Neutrophils Percent Auto 69.7 % (45.5-73.1); Platelet Count Result 286 k/mm3 (150-375); Red Blood Count 4.23 M/mm3 (4.2-5.4); Red Cell Distribution Width 13.6 % (11.5-14.5); White Blood Count 12.4 K/mm3 (4.5-10.0)
[2024-08-15] MEDS: SIMETHICONE 80 MG TAB.CHEW PO (07:27)
[2024-08-15] MEDS: IBUPROFEN 600 MG TABLET PO (07:28)
[2024-08-15] MEDS: DOCUSATE SODIUM 100 MG CAPSULE PO (07:29)
[2024-08-15 07:55] VITALS: BP 108/56; PULSE 83; RESP 16; TEMP 37.3; O2SAT 98
--- NOTE | 2024-08-15 09:06 | P.PNAN_ITS ---
Anes - Prog Note Post-Op Date/Time: 08/15/24 09:06 Cardiovascular status: normal Respiratory status: normal Airway patency: baseline Mental status: baseline Post-Op hydration status: normal Vital Signs: Last Vital Signs Temp 37.3 C 08/15/24 07:55 Pulse 83 08/15/24 07:55 Resp 16 08/15/24 07:55 BP 108/56 L 08/15/24 07:55 Pulse Ox 98 08/15/24 07:55 O2 Del Method Room Air 08/14/24 10:45 O2 Flow Rate 6 08/14/24 10:00 Pain Score (VAS): 0/10 I/O: Intake & Output 08/14/24 08/15/24 08/15/24 23:59 07:59 15:59 Intake Total 800 Balance 800 Laboratory Tests 08/15/24 03:32 08/15/24 03:32 WBC 12.4 H RBC 4.23 Hgb 12.5 Hct 38.3 MCV 90.5 MCH 29.6 MCHC 32.6 RDW 13.6 Plt Count 286 MPV 11.4 H Immature Gran % (Auto) 0.4 Neut % (Auto) 69.7 Lymph % (Auto) 19.5 [place] % (Auto) 9.5 H Eos % (Auto) 0.6 Baso % (Auto) 0.3 Lymph # (Auto) 2.41 [place] # (Auto) 1.2 H Eos # (Auto) 0.1 Baso # (Auto) 0.0 Abs Immat Gran (auto) 0.05 H Absolute Neuts (auto) 8.6 H Absolute Nucleated RBC 0.000 Nucleated RBC % 0.0 Post-procedural complaints: none Patient Feedback: Patient satisfied with anesthetic care.
== END 2024-08-15 11:05 | disposition home or self-care (01) ==
LOC: ANHSURGERY 06:06 → ANHOB2 14:02
PROVIDERS: PCP Family Medicine; Visit Provider Obstetrics & Gynecology
PROC: (CPT 58573; principal; 2024-08-14 07:30)
DX: D25.1 Intramural leiomyoma of uterus (principal); D25.0 Submucous leiomyoma of uterus; D25.2 Subserosal leiomyoma of uterus; G89.18 Other acute postprocedural pain; Z80.42 Family history of malignant neoplasm of prostate; Z80.1 Family history of malignant neoplasm of trachea, bronchus and lung
CPT/HCPCS: 58573; S2900; 36415; 85025; 88307; 99199; A9270; J0690; J1100; J1885; J2003; J2250; J2405; J2704; J3010; J7030; J7120